=== PATIENT | female | born 1995 | race African-American/Black ===

== ENCOUNTER 2016-11-26 14:49 | Emergency (ER) | payer MEDICAID, OTHER ==
[~2016-11-26] VITALS: Ht 152.4 cm; Wt 47.0 kg
[~2016-11-26 14:49] MED LIST: CEPH-443 PO; CLOT30CR24 TOP
[2016-11-26 14:52] VITALS: Ht 152.4 cm; Wt 47.0 kg
[2016-11-26] MEDS ORDERED: ONDANSETRON (ODT) 4 MG TAB ODT STA (15:07)
--- NOTE | 2016-11-26 15:18 | ERD ---
ER Documentation Chief Complaint Date/Time DATE: 11/26/16 TIME: 15:05 Chief Complaint Complains of left sided pelvic pain HPI 21-year-old female presents emergency department for left lower abdominal pain that is on and off for more than a month. Stated that he has a scheduled to see a customer support agent this coming Monday. She also complains of on and off nausea and vomiting for the last 6 months. She vomited rhinitis with nonbilious and nonbloody emesis in the last 24 hours. Had a watery stool twice for the last 24 hours. She also complains of dysuria that is on and off for about 2 weeks. Stated that she was recently treated with tinidazole and amoxicillin for bacterial vaginosis. Not sexually active. LMP was last week. A0. Denies headache, dizziness, blurry vision, neck pain, throat pain, difficulty swallowing, shoulder pain, chest pain, loss of bowel and bladder control, vaginal bleeding, vaginal lesions, vaginal rash, vaginal bleeding, , possibility of being , sexually active, recent long travel, difficulty walking due to abdominal pain, numbness or tingling sensation, fever, chills. No known drug allergies. Past medical history of asthma. Surgery: Denies. Medication: Denies. Social: Works at a warehouse. Denies smoking, use of alcoholic beverages, use of illegal drugs. ROS All systems reviewed and are negative except as per history of present illness. Medications Home Meds Active Scripts Famotidine* (Pepcid*) 20 Mg Tablet, 20 MG PO DAILY for 14 Days, TAB Prov:GERHARD RECINOS 11/26/16 Ondansetron Hcl* (Zofran*) 4 Mg Tablet, 4 MG PO Q8H Y for NAUSEA AND/OR VOMITING , #30 TAB Prov:GERHARD RECINOS 11/26/16 Nitrofurantoin Monohyd Macrocr* (Macrobid*) 100 Mg Capsr, 100 MG PO BID for 14 Days, CAP Prov:PASILAGERHARD SPEARS F 11/26/16 Cephalexin* (Keflex*) 500 Mg Capsule, 500 MG PO QID for 4 Days, #14 CAP Prov:JESSI TREVINO DO 12/05/15 Clotrimazole* (Clotrimazole* AF) 1% - 30 Gm Cream.gm., 1 APPLIC TOP BID for 28 Days, TUB 1 Refill Prov:JESSI TREVINO DO 12/05/15 Allergies Allergies: Coded Allergies: No Known Allergy (Unverified , 11/26/16) PMhx/Soc Hx Alcohol Use: No Hx Substance Use: No Hx Tobacco Use: No Physical Exam Vitals Vital Signs Date Time Temp Pulse Resp B/P Pulse Ox O2 Delivery O2 Flow Rate FiO2 11/26/16 14:52 98.6 90 20 128/75 100 Physical Exam Const: [] Head: Atraumatic Eyes: Normal Conjunctiva ENT: Normal External Ears, Nose and Mouth. Neck: Full range of motion..~ No meningismus. Resp: Clear to auscultation bilaterally Cardio: Regular rate and rhythm, no murmurs Abd: Soft, non tender, non distended. Normal bowel sounds. There is no right upper/right lower/epigastric/left upper/left lower abdominal tenderness and light and deep palpation. Negative on Rovsing sign. Negative Rochelle sign. Negative and psoas sign. No CVA tenderness. No peritoneal signs. Able to perform jumping miguel 10 times without developing abdominal pain. Skin: No petechiae or rashes Back: No midline or flank tenderness Ext: No cyanosis, or edema Neur: Awake and alert Psych: Normal Mood and Affect Results 24 hrs Laboratory Tests Test 11/26/16 15:15 Urine Color YELLOW Urine Clarity CLOUDY Urine pH 6.0 Urine Specific [place] 1.021 Urine Ketones 1+mg/dL Urine Nitrite NEGATIVEmg/dL Urine Bilirubin NEGATIVEmg/dL Urine Urobilinogen NEGATIVEmg/dL Urine Leukocyte Esterase 1+Annie/ul Urine Microscopic RBC > 182/HPF Urine Microscopic WBC 109/HPF Urine Bacteria FEW/HPF Urine Hemoglobin 3+mg/dL Urine Glucose NEGATIVEmg/dL Urine Total Protein 2+mg/dl Current Medications Medications (Trade) Dose Ordered Sig/Kody Route PRN Reason Start Time Stop Time Status Last Admin Dose Admin Miscellaneous Medication (Gi Cocktail (2)) 40 ml ONCE ONCE PO 11/26/16 15:30 11/26/16 15:31 DC 11/26/16 15:20 Ondansetron HCl (Zofran Odt) 4 mg ONCE STAT ODT 11/26/16 15:07 11/26/16 15:09 DC 11/26/16 15:20 Procedures/MDM 21-year-old female presents emergency department for left lower abdominal pain that is on and off for more than a month. Stated that he has a scheduled to see a customer support agent this coming Monday. She also complains of on and off nausea and vomiting for the last 6 months. She vomited rhinitis with nonbilious and nonbloody emesis in the last 24 hours. Had a watery stool twice for the last 24 hours. She also complains of dysuria that is on and off for about 2 weeks. Stated that she was recently treated with tinidazole and amoxicillin for bacterial vaginosis. Not sexually active. LMP was last week. A0. Denies headache, dizziness, blurry vision, neck pain, throat pain, difficulty swallowing, shoulder pain, chest pain, loss of bowel and bladder control, vaginal bleeding, vaginal lesions, vaginal rash, vaginal bleeding, , possibility of being , sexually active, recent long travel, difficulty walking due to abdominal pain, numbness or tingling sensation, fever, chills. No known drug allergies. Past medical history of asthma. Surgery: Denies. Medication: Denies. Social: Works at a [employer]. Denies smoking, use of alcoholic beverages, use of illegal drugs. Physical exam: Respirations even and unlabored. Lung sounds are clear to auscultation. There is no right upper/right lower/epigastric/left upper/left lower abdominal tenderness and light and deep palpation. Negative on Rovsing sign. Negative Rochelle sign. Negative and psoas sign. No CVA tenderness. No peritoneal signs. Able to perform jumping miguel 10 times without developing abdominal pain. Disease process was explained to the patient. She verbalized understanding and agreed with the diagnostic test, treatment, plan of care. POC urine : Negative. Urinalysis: Mild UTI Treatment: Zofran. GI cocktail. P.o. challenge. Reevaluation: Denies headache, dizziness, blurred vision, neck pain, throat pain , difficulty swallowing, shoulder pain, chest pain, abdominal pain, nausea, vomiting. No episode of emesis in the emergency department. There is no right upper/right lower/epigastric/left upper/left lower abdominal tenderness and light and deep palpation. Negative on Rovsing sign. Negative Rochelle sign. Negative and psoas sign. Able to jump 10 times without developing abdominal pain. No neurovascular deficit no neurological deficits. Differential diagnosis: Ovarian torsion versus ovarian cyst rupture versus diverticulitis versus diverticulosis versus pancreatitis versus cholecystitis versus appendicitis versus nephrolithiasis versus gastritis Final diagnosis: mild UTI. Prescription: Macrobid. Zofran. Pepcid. Follow-up with primary care physician the next 24-48 hours. Patient stated that she has an appointment with a customer support agent this coming Monday. Come back to emergency department for any symptoms or any worsening of symptoms. All questions and concerns are answered. Patient verbalized understanding and agreed with the plan of care. Hemodynamically stable on discharge. Departure Diagnosis: Primary Impression: UTI (urinary tract infection) Condition: Stable Additional Instructions: Follow-up with primary care physician the next 24-48 hours. Patient stated that she has an appointment with a customer support agent this coming Monday. Come back to emergency department for any symptoms or any worsening of symptoms. All questions and concerns are answered. Patient verbalized understanding and agreed with the plan of care. GERHARD RECINOS Nov 26, 2016 15:18
[2016-11-26] MEDS ORDERED: LIDOCAINE/MYLANTA 40 ML BTL PO ONE (15:30)
[2016-11-26 15:50] LABS: ADD UMIC YES; UR ASCORBIC ACID NEGATIVE (NEGATIVE); UR BACTERIA FEW /HPF (NONE SEEN); UR BILIRUBIN (Dip) NEGATIVE (NEGATIVE); UR BLOOD (Dip) 3+ mg/dL (NEGATIVE); UR CLARITY CLOUDY (CLEAR); UR COLOR YELLOW (YELLOW); UR GLUCOSE (Dip) NEGATIVE (NEGATIVE); UR KETONES (Dip) 1+ mg/dL (NEGATIVE); UR LEUKOCYTE ESTERASE (Dip) 1+ Leu/ul (NEGATIVE); UR NITRITE (Dip) NEGATIVE (NEGATIVE); UR RBC > 182 /HPF (0-5); UR SPECIFIC GRAVITY (Dip) 1.021 (1.003-1.030); UR TOTAL PROTEIN (Dip) 2+ mg/dl (NEGATIVE); UR UROBILINOGEN (Dip) NEGATIVE (NEGATIVE)
[2016-11-26] MEDS ORDERED: NITR-58 PO (15:55)
[2016-11-26] MEDS ORDERED: ONDA4TAB8 PO (15:56)
[2016-11-26] MEDS ORDERED: FAMO-96 PO (15:56)
[2016-11-26 16:01] VITALS: BP 128/75; PULSE 66; RESP 20
== END 2016-11-26 16:02 | disposition home or self-care (01) ==
LOC: FTE 14:49
DX: N39.0 Urinary tract infection, site not specified (principal)
CPT/HCPCS: 81001; 87591; Z7502; Z7610; 99283